=== PATIENT | female | born 1980 | race Hispanic/Latino ===

== ENCOUNTER 2017-06-22 11:05 | Emergency (ER) | payer BC ==
[2017-06-22 11:17] VITALS: BP 110/75; RESP 20
[2017-06-22 11:33] VITALS: PULSE 82; TEMP 98; O2SAT 100
--- NOTE | 2017-06-22 12:24 | C.PDOC ---
History Of Present Illness 37-year-old female, presents to the emergency department with complaints of non- bloody/non-bilious vomiting and watery/non-bloody diarrhea since last night. Patient states symptoms are likely from something she ate last night. No abdominal pain, fever, headache, or any other associated symptoms. No other complaints at this time. Immunizations are up to date. Patient travelling from [place]. Time Seen by Provider: 06/22/17 11:22 Chief Complaint (Nursing): GI Problem History Per: Patient History/Exam Limitations: no limitations Past Medical History Reviewed: Historical Data, Nursing Documentation, Vital Signs Vital Signs: Last Vital Signs Temp 98 F 06/22/17 11:13 Pulse 82 06/22/17 11:13 Resp 20 06/22/17 11:13 BP 110/75 06/22/17 11:13 Pulse Ox 100 06/22/17 12:52 Family History: States: No Known Family Hx - Social History Hx Alcohol Use: No Hx Substance Use: No - Immunization History Hx Tetanus Toxoid Vaccination: No Hx Influenza Vaccination: No Hx Pneumococcal Vaccination: No Review Of Systems Except As Marked, All Systems Reviewed And Found Negative. Constitutional: Negative for: Fever Cardiovascular: Negative for: Chest Pain Respiratory: Negative for: Shortness of Breath Gastrointestinal: Positive for: Nausea, Vomiting, Diarrhea. Negative for: Abdominal Pain Musculoskeletal: Negative for: Back Pain Neurological: Negative for: Weakness, Headache Physical Exam - Physical Exam Appears: Non-toxic, No Acute Distress Skin: Warm, Dry, No Rash Head: Atraumatic, Normacephalic Eye(s): bilateral: Normal Inspection, EOMI Nose: Normal Oral Mucosa: Moist Lips: Normal Appearing Neck: Normal ROM Lymphatic: Normal Exam Chest: Symmetrical Cardiovascular: Rhythm Regular Respiratory: Normal Breath Sounds, No Accessory Muscle Use Gastrointestinal/Abdominal: Soft, No Tenderness Back: No CVA Tenderness Extremity: Normal ROM Neurological/Psych: Oriented x3, Normal Speech ED Course And Treatment O2 Sat by Pulse Oximetry: 100 (on RA) Pulse Ox Interpretation: Normal Progress Note: Patient PO challenged and treated with Zofran. On re-evaluation , pt notes that she feels better. No abdominal pain. TOlerating PO. Pt feels comfortable going home. SInce pt is asymptomatic, no further work up will be ordered. Pt instructed to follow up with PMD in 1-2 days or return to ER if symtpoms persist or owrsen. Disposition - Disposition Disposition: HOME/ ROUTINE Disposition Time: 12:41 Condition: STABLE Additional Instructions: Follow up with your primary medical doctor or clinic in 2-5 days for further evaluation. Take medications as prescribed. Return to the emergency department at any time if symptoms persist or worsen. Prescriptions: Loperamide HCl/Simethicone [Imodium Multi-Symptom Rel Cplt] 1 each PO DAILY #15 tablet Ondansetron ODT [Zofran ODT] 1 odt PO BID PRN #5 odt PRN Reason: Nausea/Vomiting Instructions: Gastroenteritis (ED) Forms: [facility] [facility] [employer] (Tajik) - Clinical Impression Clinical Impression: Vomiting, Diarrhea - Scribe Statement The provider has reviewed the documentation as recorded by the Scribe (Kenrick Molina) All medical record entries made by the Scribe were at my direction and personally dictated by me. I have reviewed the chart and agree that the record accurately reflects my personal performance of the history, physical exam, medical decision making, and the department course for this patient. I have also personally directed, reviewed, and agree with the discharge instructions and disposition.
== END 2017-06-22 13:11 | disposition home or self-care (01) ==
LOC: C.ER 11:05
DX: R19.7 Diarrhea, unspecified (principal); R11.10 Vomiting, unspecified

== ENCOUNTER 2017-07-01 13:15 | Emergency (ER) | payer BC, MEDICAID ==
[2017-07-01 13:46] VITALS: BP 116/71; PULSE 73; RESP 18; TEMP 97.6; O2SAT 99
--- NOTE | 2017-07-01 14:25 | C.PDOC ---
History Of Present Illness 37-year-old female, presents to the emergency department with complaints of left shoulder pain. Patient states that approximately three days ago she was attempting to lift her child, she injured her left shoulder, and a heard a popping sound. Patient states that she is able to move the shoulder with pain. Denies numbness/weakness, chest pain, SOB, tingling, or any other associated injuries/symptoms. No other complaints at this time. Time Seen by Provider: 07/01/17 13:41 Chief Complaint (Nursing): Upper Extremity Problem/Injury History Per: Patient History/Exam Limitations: no limitations Onset/Duration Of Symptoms: Days Current Symptoms Are (Timing): Still Present Past Medical History Reviewed: Historical Data, Nursing Documentation, Vital Signs Vital Signs: Last Vital Signs Temp 97.6 F 07/01/17 13:34 Pulse 73 07/01/17 13:34 Resp 18 07/01/17 13:34 BP 116/71 07/01/17 13:34 Pulse Ox 99 07/01/17 23:58 Family History: States: No Known Family Hx - Social History Hx Alcohol Use: No Hx Substance Use: No - Immunization History Hx Tetanus Toxoid Vaccination: No Hx Influenza Vaccination: No Hx Pneumococcal Vaccination: No Review Of Systems Constitutional: Negative for: Fever Respiratory: Negative for: Shortness of Breath Gastrointestinal: Negative for: Vomiting Musculoskeletal: Positive for: Shoulder Pain Neurological: Negative for: Weakness, Numbness, Headache, Dizziness Physical Exam - Physical Exam Appears: Non-toxic, No Acute Distress Skin: Warm, Dry, No Rash Head: Atraumatic, Normacephalic Eye(s): bilateral: Normal Inspection Extremity: Normal ROM, Tenderness (Mild, lateral left shoulder), No Capillary Refill (<2 seconds), No Deformity, No Swelling Pulses: Left Radial: Normal, Right Radial: Normal Neurological/Psych: Oriented x3, Normal Speech ED Course And Treatment O2 Sat by Pulse Oximetry: 99 (on RA) Pulse Ox Interpretation: Normal Medical Decision Making Medical Decision Making: Shoulder xrays are negative. Patient has refused sling at this time. Disposition - Disposition Referrals: [facility] [Outside] Gavi Molina MD [Staff Provider] - Disposition: HOME/ ROUTINE Disposition Time: 14:30 Condition: GOOD Additional Instructions: Follow up with the medical doctor within 1-2 days. Return if worsened. Prescriptions: Naproxen [Naprosyn] 500 mg PO BID #20 tab Instructions: Shoulder Sprain (ED) Forms: [employer] ([place]) - Clinical Impression Clinical Impression: Shoulder sprain - Scribe Statement The provider has reviewed the documentation as recorded by the Scribe (Kenrick Molina) All medical record entries made by the Scribe were at my direction and personally dictated by me. I have reviewed the chart and agree that the record accurately reflects my personal performance of the history, physical exam, medical decision making, and the department course for this patient. I have also personally directed, reviewed, and agree with the discharge instructions and disposition.
--- NOTE | 2017-07-01 14:36 | RAD ---
PROCEDURE: Radiographs of the Left Shoulder HISTORY: shoulder injury, pain to lateral shoulder COMPARISON: None available. FINDINGS: BONES: No acute displaced fracture. The distal clavicle and underlying ribs appear intact. JOINTS: No acute dislocation. SOFT TISSUES: Soft tissues appear unremarkable. No evidence of radiopaque foreign body. IMPRESSION: No acute displaced fracture or dislocation evident. If symptoms persist or if there is continued clinical concern, x-ray follow-up in 7-10 days should be considered.
== END 2017-07-01 14:58 | disposition home or self-care (01) ==
LOC: C.ER 13:15
DX: S43.402A Unspecified sprain of left shoulder joint, initial encounter (principal); X50.1XXA Overexertion from prolonged static or awkward postures, initial encounter; Y92.89 Other specified places as the place of occurrence of the external cause